=== PATIENT | female | born 1960 | race Caucasian/White ===

== ENCOUNTER → 2023-07-10 15:40 | Outpatient (REF) | payer BC, MEDICARE, OTHER, SELFPAY | LOC: HWRAD 15:40 | PROVIDERS: ATTENDING PHYSICIAN Internal Medicine Infectious Disease; FAMILY PHYSICIAN Student in an Organized Health Care Education/Training Program; REFERRING PHYSICIAN Internal Medicine Critical Care Medicine | DX: J47.9 Bronchiectasis, uncomplicated (principal) | CPT/HCPCS: 71250 ==

== ENCOUNTER 2023-09-14 06:10 | Outpatient (RCR) | payer BC, MEDICARE, OTHER, SELFPAY | END 2023-09-18 08:01 | disposition home or self-care (01) | LOC: RPT 06:10 | PROVIDERS: ATTENDING PHYSICIAN Surgery; FAMILY PHYSICIAN Student in an Organized Health Care Education/Training Program | DX: N30.10 Interstitial cystitis (chronic) without hematuria (principal); M62.89 Other specified disorders of muscle; N39.41 Urge incontinence; Z73.6 Limitation of activities due to disability | CPT/HCPCS: 97162; 97530 ==

== ENCOUNTER 2023-10-02 06:15 | Day surgery (SDC) | payer BC, MEDICARE, OTHER, SELFPAY ==
[2023-09-21 08:08] VITALS: BMI 18.4
[2023-09-21 09:37] LABS: Hematocrit 39.6 % (37.0-47.0); Hemoglobin 13.8 g/dL (12.0-16.0); Mean Corp Hgb Conc. 34.8 g/dL (33.0-37.0); Mean Corpuscular Hgb 32.5 pg (27.0-31.0); Mean Corpuscular Volume 93.2 fL (81.0-99.0); Mean Platelet Volume 9.9 fL (7.4-10.4); Platelet Count 195 10^3/uL (130-400); Red Blood Cell Count 4.25 10^6/uL (4.20-5.40); Red Cell Dist. Width 13.6 % (11.5-14.5); White Blood Cell Count 3.9 10^3/uL (4.8-10.8)
[2023-09-21 10:11] LABS: ALT (SGPT) 21 U/L (0-35); AST (SGOT) 39 U/L (14-36); Albumin 4.3 g/dl (3.5-5.0); Alkaline Phosphatase 55 U/L (38-126); Blood Urea Nitrogen 13 mg/dl (7-17); Calcium 9.6 mg/dl (8.4-10.2); Carbon Dioxide 27 mmol/L (22-30); Chloride 98 mmol/L (98-107); Estimated Creatinine Clearance 79 ml/min; Glucose 79 mg/dl (70-99); Potassium 4.6 mmol/L (3.5-5.1); Sodium 133 mmol/L (135-145); Total Bilirubin 0.6 mg/dl (0.2-1.3); Total Protein 7.5 g/dl (6.3-8.2); eGFR > 60.00
[2023-09-21 11:59] LABS: Glycohemoglobin (HgbA1c) 5.4 % (4.0-5.6)
[2023-10-02] VITALS (16 sets, daily range): BP systolic 99–139; BP diastolic 53–79; BMI 18.4
--- NOTE | 2023-10-02 07:08 | W.SUR.PREOP ---
Pre-Operative Surgical Note
-
I have examined this patient prior to the performance of the scheduled procedure.
The patient's condition is unchanged from the time of the current History and
Physical and the patient is able to undergo the scheduled procedure.
Confirmed with patient plan for RAL LIH repair with mesh with myself
Any of her questions were fully addressed
The appropriate surgical side and site were confirmed and marked.
[2023-10-02] MEDS: Pyridium 200 MG PO (07:09)
[2023-10-02] MEDS: ENTEREG 12 MG PO (07:09)
[2023-10-02] MEDS: TYLENOL 1000 MG PO (07:10)
[2023-10-02] MEDS: NORMOSOL-R 1000 IV ×3 (07:11→23:40)
[2023-10-02] MEDS: HEPARIN 5000 UNITS SC (07:11)
--- NOTE | 2023-10-02 07:33 | HP.FOC2 ---
Focused History & Physical
Chief Complaint
HPI:
Chief Complaint: left inguinal pain
HPI / Indication for Planned Procedure: US confirmed LIH, pt wishes to correct simultaneously with planned CR and TIN WORKER procedures.
Relevant Past Medical History: Other (hypothyroid, depression, autoimmune)
Relevant Social History: Negative
Relevant Family History: Negative
Relevant Past Surgical History: Positive for
Review of Systems
Review of Pertinent Systems: All Systems Negative
Medication
See Medication form for detailed medications: Yes
Medication List (including Herbals & OTC):
denosumab 60 mg/mL subcutaneous syringe (Prolia) 60 mg SQ Q6M Osteoporosis 06/17/19
pravastatin 20 mg tablet 20 mg PO QPM High cholesterol 06/17/19
sodium chloride 3 % for nebulization 4 ml inhalation DAILY 06/17/19
prucalopride 2 mg tablet (Motegrity) 2 mg PO DAILY PRN constipation 09/22/20
unbtenaz-drb-hreid acid 0.4 mg-lycopene 300 mcg-lutein 250 mcg tablet (Centrum Silver) 1 ea PO DAILY Supplement 02/16/21
calcium citrate 500 mg (2,376 mg) effervescent tablet 1,200 mg PO DAILY Supplement 03/02/22
lorazepam 0.5 mg tablet (Ativan) 0.5 mg PO PRN PRN ANXIETY 03/02/22
mecobalamin (vitamin B12) 1,000 mcg chewable tablet 1,000 mcg PO DAILY Supplement 03/02/22
Probiotic 1 cap PO DAILY 09/26/23
amikacin liposomal 590 mg/8.4 mL susp for inhalation, nebulizer acces. (Arikayce) 590 mg inhalation DAILY 09/26/23
azithromycin 250 mg tablet (Zithromax) 250 mg PO DAILY 09/26/23
calcium carbonate 600 mg-vitamin D3 20 mcg (800 unit) chewable tablet (Caltrate 600 plus D) 1 tab PO DAILY 09/26/23
cholecalciferol (vitamin D3) 25 mcg (1,000 unit) capsule (Vitamin D3) 25 mcg PO DAILY 09/26/23
ethambutol 400 mg tablet 800 mg PO DAILY 09/26/23
levothyroxine 75 mcg tablet 75 mcg PO DAILY 09/26/23
magnesium 250 mg tablet 250 mg PO DAILY 09/26/23
metronidazole 500 mg tablet 500 mg PO PRE OP 09/26/23
neomycin 500 mg tablet 1,000 mg PO PRE OP 09/26/23
potassium 99 mg tablet 99 mg PO DAILY 09/26/23
rifabutin 150 mg capsule 150 mg PO DAILY 09/26/23
sodium sul 1.479 gram-potas ch 0.188 gram-magnes sul 0.225 gram tablet (Sutab) 0 tab PO PRE OP 09/26/23
plecanatide 3 mg tablet (Trulance) 3 mg PO DAILY 10/02/23
Medications Reviewed: Yes
Allergies and Reactions
Patient has Allergies: Yes
Noted Allergies and Reactions:
Allergy/AdvReac Type Severity Reaction Status Date / Time
ampicillin Allergy yeast Verified 10/02/23 06:47
infection
NSAIDS (Non-Steroidal Allergy stomach Verified 10/02/23 06:47
Anti-Inflamma issues
pollen extracts Allergy seasonal Verified 10/02/23 06:47
allergy
Pertinent Physical Exam
All Other Systems: Negative
Head/Neck: Normal
Lungs: Normal
Heart: Normal
Abdomen: Normal
Extremities: Normal
Neurological: Normal
Diagnosis / Assessment
63 y/o with US identified LIH presenting for sheduled repair with planned TIN WORKER/CR surgery
Plan / Procedure
RAL LIH repair with mesh
Anesthesia/Sedation to be done by Anesthesia Provider: Yes
--- NOTE | 2023-10-02 09:17 | W.IMMPOSTOP ---
Surgical Immed Post Op Note
-
Primary Surgeon: Richard
Assisting Surgeon: Alyssa UPTON
Pre-op Diagnosis: Left inguinal hernia
Post-op Diagnosis: Left indirect inguinal hernia/left femoral hernia
Procedure Performed: Robotic assisted laparoscopic ENDER repair left inguinal/femoral hernia with mesh; 3D max large mid weight
Anesthesia Type: GETA
Specimen / Cultures: None
Estimated Blood Loss: 4 mL
Complications: None immediate
Operative Findings: No peritoneal defect/protrusion. Left inguinal preperitoneal flap with subsequent identification of left indirect inguinal hernia, fat-containing as well as left femoral hernia. 3D max large mid weight mesh repair secured to
Winston's ligament with interrupted 2-0 Vicryl suture. Peritoneal flap closed with 2-0 Monocryl Stratafix.
Patient's updated postoperatively via phone call
--- NOTE | 2023-10-02 12:14 | W.IMMPOSTOP ---
Documented by User: Edna [email or web address] 10/02/23 12:22
Surgical Immed Post Op Note
-
Primary Surgeon: Oscar iKm MD, Santo Ramos MD, Inder Shook MD
Assisting Surgeon: Harsha UPTON
Pre-op Diagnosis: left inguinal hernia
pelvic floor dysfunction, rectal prolapse
prolapse of vaginal vault after hysterectomy
Post-op Diagnosis: left indirect inguinal hernia/ left femoral hernia
pelvic floor dysfunction, rectal prolapse
prolapse of vaginal vault after hysterectomy
Procedure Performed: robotic assisted laparoscopic ENDER repair left inguinal/femoral hernia with mesh
robotic ventral rectopexy with mesh
Anesthesia Type: GET
Specimen / Cultures: None
Estimated Blood Loss: 15 cc
Complications: None
Operative Findings:

Documented by User: Enrique Kim MD 10/02/23 12:52
Surgical Immed Post Op Note
-
Primary Surgeon: Oscar Kim MD, Santo Ramos MD, Inder Shook MD
Assisting Surgeon: Harsha UPTON
Pre-op Diagnosis: left inguinal hernia
pelvic floor dysfunction, rectal intussusception
prolapse of vaginal vault after hysterectomy
right adnexal mass
Post-op Diagnosis: left indirect inguinal hernia/ left femoral hernia
pelvic floor dysfunction, rectal intussusception
prolapse of vaginal vault after hysterectomy
right adnexal mass
Procedure Performed: robotic assisted laparoscopic ENDER repair left inguinal/femoral hernia with mesh
robotic ventral rectopexy with mesh
robotic sacroculpopexy and excision of right adnexal mass
Anesthesia Type: GET
Specimen / Cultures: None
Estimated Blood Loss: 15 cc
Complications: None
Operative Findings: benign-appearing right adnexal mass
small left indirect and femoral hernia
pelvic floor prolapse (mesh repair)
posterior colporrhaphy and perineoplasty
Patient's updated.
[2023-10-02] MEDS: DEMEROL 12.5 MG IV (12:38)
[2023-10-02] MEDS: DILAUDID 0.5 MG IV ×3 (12:44→13:18)
[2023-10-02] MEDS: TORADOL 15 MG IV ×2 (16:55→22:01)
[2023-10-02] MEDS: TYLENOL 650 MG PO ×2 (16:56→20:57)
[2023-10-02] MEDS: ZOFRAN 4 MG IV (17:04)
[2023-10-02] MEDS: PRAVACHOL 20 MG PO (17:04)
[2023-10-02] MEDS: ERYTHROMYCIN 0.5% OPHTHALMIC OINTMENT 1 APPLIC OPHTH ×2 (17:20→22:12)
--- NOTE | 2023-10-02 17:23 | OR.RPT ---
Operative Report
Operative Report
Surgeon: Inder Shook MD
PREOPERATIVE DIAGNOSIS:
1. Recurrent pelvic organ prolapse
POSTOPERATIVE DIAGNOSIS:
1. Recurrent pelvic organ prolapse
PROCEDURE:
1. Robotic assisted laparoscopic sacrocolpopexy
2. Robotic assisted right adnexal cystectomy
3. Posterior colporrphaphy with perineoplasty
4. Cystoscopy
ASSISTANTS: ALEXSANDRA Matthew
EBL: 20 cc
COMPLICATIONS: None
SPECIMENS: Right adnexal cysts
INDICATIONS: Patient has symptomatic pelvic organ prolapse s/p total hysterectomy and uterosacral ligament suspension.� The risks of surgery were reviewed, including the risk of bleeding, infection, damage to surrounding organs including bowel,
bladder, ureter, urethra, nerves, blood vessels, mesh complications, post-operative urinary retention and urinary incontinence. The risk of anesthesia was also reviewed.� The patient expressed understanding and informed consent was obtained.
FINDINGS: Laparoscopic findings include cystic structure of the right adnexa. Cystoscopic findings include normal bladder mucosa, no cystotomy, suture, mesh, lacerations or lesions.� Normal efflux of urine from bilateral ureteral openings. Normal
urethra.
DESCRIPTION OF PROCEDURE:
On day of surgery, patient properly identified in preoperative waiting area and informed consent of planned procedure again reviewed.� She was then taken to the operating room.� Sequential compression devices were placed on bilateral lower
extremities and 5,000 units of subcutaneous heparin were given for DVT prophylaxis.� General anesthesia was induced without difficulty.�The patient was placed in dorsal lithotomy position with Hao stirrups and prepped and draped in the usual
sterile fashion.� Surgical time-out was performed to review patient and procedure.
At this time, Dr. Santo Ramos completed a left sided inguinal hernia repair. Please see his operative report.
�
On inspection of the pelvis, there was complex cystic structure on her right adnexa. The cyst was isolated and cauterized with bipolar and then dissected free from the sidewall with monopolar scissor. This was placed in an Endobag and removed from
the abdomen.
The robotic assisted laparoscopic abdominal sacrocolpopexy was performed as follows:� The bladder was dissected anteriorly off the vagina to allow for mesh placement.�The posterior peritoneum was entered sharply and the rectum dissected posteriorly
off the vagina.� The posterior peritoneum was continued to be opened through the cul-de-sac.� Next the sacrum was exposed after retracting bowel gently away.� The peritoneum overlying the sacral was tented up and entered sharply.� The presacral
space area was opened op and dissection carried down to expose and clear off the anterior longitudinal ligament at the level of the sacrum.� This peritoneum incision was carried inferiorly to join the peritoneal incision of the posterior
cul-de-sac.� Hemostasis was noted.��
At this time, Dr. Oscar Kim completed a rectopexy. Please see his operative report.
�The robotic assisted laparoscopic abdominal sacrocolpopexy was completed as follows: the polypropylene Y mesh was introduced through the accessory port and positioned over the cervix.� The anterior arm of the Y mesh was sutured to the anterior
cervix and vagina with approximately nine #2-0 Gortex sutures.� The posterior arm of the Y mesh was sutured to the posterior cervix and vagina with nine #2-0 Gortex sutures.� The tail of the Y mesh was attached to the anterior longitudinal ligament
at the level of the sacrum with 3 #2-0 Gortex sutures.� The vagina was noted to be elevated but not under tension.� Hemostasis was noted.� The excess mesh was trimmed and removed.� The peritoneum was reapproximated to cover the mesh.� The pelvis was
reexamined and hemostasis was noted throughout.�
Cystoscopy was completed with above findings.
The robot was undocked.�CO2 was released and ports removed under direct visualization.� Skin was closed with 4-0 Biosyn for the subcuticular layer.� All abdominal incisions were then closed with skin glue.�
The posterior repair and perineorrhaphy was performed as follows: The posterior vaginal mucosa and perineum skin were infiltrated with 1% lidocaine with 1:100,000 epinephrine. A triangular area of perineum skin was removed using a scalpel.� The
posterior vaginal mucosa was then opened up in the midline, going from the introitus toward the apex using Metzenbaum scissors.� The posterior vaginal mucosa was then dissected off the underlying rectovaginal fascia bilaterally out to the level of
the lateral sulci.� The apical edge of the rectovaginal fascia was identified and used plicate in the midline with interrupted stitches of #2-0 PDS.� Interrupted suture of #2-0 PDS were also used to plicate the transverse peritoneal and
bulbospongiosus muscles in the midline to reconstruct the perineal body.� Excess vaginal mucosa was trimmed.� The vaginal mucosa and perineum skin were reapproximated with 2-0 Vicryl in a running continuous fashion.� Rectal exam revealed no
stitches.� Vaginal packing was not placed.
Anesthesia was reversed without difficulty.� The patient tolerated the procedure well, was awakened and sent to the PACU in stable condition. All counts were correct x 2. I, Dr. Shook was scrubbed and present throughout the procedure
[2023-10-02] MEDS: ATIVAN 0.5 MG PO (21:00)
[2023-10-03] VITALS (7 sets, daily range): BP systolic 103–124; BP diastolic 54–65; BMI 19.1
[2023-10-03] MEDS: TYLENOL 650 MG PO ×6 (01:00→20:33)
[2023-10-03] MEDS: TORADOL 15 MG IV ×4 (05:00→22:37)
[2023-10-03] MEDS: SYNTHROID 75 MCG PO (05:11)
--- NOTE | 2023-10-03 06:57 | W.PN.GYN ---
Today's Communication / Plan
-
1. d/c ruelas after BMP results
Physician Note
-
Assessment and plan:
63 yo woman POD 1 s/p robotic sacrocolpopexy, right adnexal cystectomy, posterior colporrhaphy, cystoscopy (Boone), rectopexy (Julio), inguinal repair (Richard): patient meeting postoperative milestones and doing well POD1
Postoperative Care:
-Diet per Colorectal surgery
-DVT ppx: scds and ambulation
-: no vaginal packing, minimal spotting
-Ruelas catheter: removed after BMP results
-BMP and CBC pending this morning
Subjective:
no acute pain, ambulating to chair, deneis flatus, minimal vaginal spotting, denies fevers/chills, nausea, chest pain, sob, leg pain
Objective:
Intake and Output
10/01/23 10/02/23 10/03/23 10/04/23
06:59 06:59 06:59 06:59
Intake Total 1870 / 1870
Output Total 1240 / 1240
Balance 630 / 630
Intake:
Oral fluids 495 / 495
IV fluids (Total) 1375 / 1375
Normosol-R 1,000 ml @ 100 mls/ 75 / 75
hr IV .Q10H [facility] Rx#:[id number]
norm 100 / 100
Output:
Urine, Ruelas 1240 / 1240
Vital Signs
Temp Pulse Resp BP Pulse Ox
98.2 F 87 16 110/56 98
10/03/23 03:47 10/03/23 03:47 10/03/23 03:47 10/03/23 03:47 10/03/23 03:47
Exam:
ABdomen: soft, nontender
Incisions: clean dry intact
: ruelas in place, no active bleeding
[2023-10-03 07:50] LABS: % Basophils 0.3 % (0-2); % Eosinophils 0.3 % (0-6); % Immature Granulocytes 0.3 % (0-0.5); % Lymphocytes 34.9 % (20.5-51.1); % Monocytes 10.8 % (1.7-9.3); % Neutrophils 53.4 % (42.2-75.2); Absolute Lymphocytes 2.5 10^3/uL (1.2-3.4); Absolute Monocytes 0.8 10^3/uL (0.1-0.6); Absolute Neutrophils 3.8 10^3/uL (1.4-6.5); Hematocrit 33.6 % (37.0-47.0); Mean Corp Hgb Conc. 35.7 g/dL (33.0-37.0); Mean Corpuscular Hgb 32.5 pg (27.0-31.0); Mean Corpuscular Volume 91.1 fL (81.0-99.0); Mean Platelet Volume 9.3 fL (7.4-10.4); Nucleated Red Blood Cells % 0 %; Platelet Count 225 10^3/uL (130-400); Red Blood Cell Count 3.69 10^6/uL (4.20-5.40); Red Cell Dist. Width 13.7 % (11.5-14.5); White Blood Cell Count 7.1 10^3/uL (4.8-10.8)
[2023-10-03 08:16] LABS: Blood Urea Nitrogen 8 mg/dl (7-17); Calcium 7.4 mg/dl (8.4-10.2); Carbon Dioxide 23 mmol/L (22-30); Chloride 105 mmol/L (98-107); Estimated Creatinine Clearance 81 ml/min; Glucose 86 mg/dl (70-99); Potassium 4.1 mmol/L (3.5-5.1); Sodium 134 mmol/L (135-145); eGFR > 60.00
--- NOTE | 2023-10-03 08:36 | W.PN.CRS1 ---
Today's Communication / Plan
-
fulls
d/c ruelas
start lovenox
Assessment/Plan
-
VSS, WBC 7.1
POD#1 robotic assisted laparoscopic ENDER repair left inguinal/femoral hernia with mesh, robotic ventral rectopexy with mesh
1. Tolerating clears. Advance to a full liquid diet.
2. Vitals normal. Hgb stable, 12.0 from 13.8.
3. D/c ruelas. Good urine output and creatinine is 0.5.
4. Start Lovenox today for DVT prophylaxis. TEDS/SCDS in place.
5. Pain control: Tylenol/Toradol standing, Dilaudid PRN.
6. OR pathology pending.
7. OOB as tolerated.
Subjective Data
Procedure
10/02/2023- robotic assisted laparoscopic ENDER repair left inguinal/femoral hernia with mesh, robotic ventral rectopexy with mesh
Subjective Data
Date of Service: October 03, 2023
Patient states she is 'sore'. She had some nausea overnight which resolved. She has not had any flatus or bowel movements.
Objective Data
-
Vital Signs
Temp Pulse Resp BP Pulse Ox
98.6 F 62 16 105/63 97
10/03/23 07:20 10/03/23 07:20 10/03/23 07:20 10/03/23 07:20 10/03/23 07:20
Intake & Output
10/02/23 10/03/23 10/04/23
06:59 06:59 06:59
Intake Total 1870 / 1870
Output Total 1240 / 1240
Balance 630 / 630
Intake:
Oral fluids 495 / 495
IV fluids (Total) 1375 / 1375
Normosol-R 1,000 ml @ 100 mls/ 75 / 75
hr IV .Q10H [facility] Rx#:[id number]
norm 100 / 100
Output:
Urine, Ruelas 1240 / 1240
Lab Results
10/03/23 07:29
10/03/23 07:29
Physical Exam
-
General: No Acute Distress and AOx3
Abdomen: Soft, Non Distended and Non Tender
Skin: Warm and Dry
Incision: Clear, Dry, Intact
[2023-10-03] MEDS: ERYTHROMYCIN 0.5% OPHTHALMIC OINTMENT OPHTH ×4 (09:06→22:44)
[2023-10-03] MEDS: ENTEREG 12 MG PO ×2 (09:07→20:33)
[2023-10-03] MEDS: NORMOSOL-R IV ×2 (09:08→18:11)
--- NOTE | 2023-10-03 10:19 | CM ---
Patient seen bedside.
IA completed.
patient lives with spouse in a 2 story home with 1st floor bedroom.
Patient drives.
Kelly d/c this am, await void.
Declined VN
PCP: Dr Hoyos
Pharmacy; [facility]
Plan: home no needs anticipated, aware of CM availability should needs arise.
[2023-10-03] MEDS: LOVENOX 40 MG SC (16:57)
[2023-10-03] MEDS: PRAVACHOL 20 MG PO (17:00)
[2023-10-03] MEDS: ZOFRAN 4 MG IV (17:11)
[2023-10-03] MEDS: ATIVAN 0.5 MG PO (20:39)
[2023-10-04] MEDS: TYLENOL PO (00:15)
[2023-10-04] MEDS: TYLENOL 650 MG PO ×2 (04:23→08:18)
[2023-10-04] MEDS: TORADOL 15 MG IV ×2 (04:23→10:42)
[2023-10-04] MEDS: SYNTHROID 75 MCG PO (04:36)
[2023-10-04] MEDS: ERYTHROMYCIN 0.5% OPHTHALMIC OINTMENT 1 APPLIC OPHTH (04:37)
[2023-10-04 04:40] VITALS: BMI 18.8
--- NOTE | 2023-10-04 06:39 | W.PN.GYN ---
Today's Communication / Plan
-
plan per colorectal
Physician Note
-
Assessment and plan:
63 yo woman POD 2 s/p robotic sacrocolpopexy, right adnexal cystectomy, posterior colporrhaphy, cystoscopy (Boone), rectopexy (Julio), inguinal repair (Richard): patient meeting postoperative milestones and doing well POD2
Postoperative Care:
-Diet per Colorectal surgery
-DVT ppx: scds and ambulation and Lovenox
-: no vaginal packing, minimal spotting
-Voiding without catheter
-BMP and CBC pending this morning
Subjective:
no acute pain, ambulating to chair, passed flatus, had diarrhea yesterday, minimal vaginal spotting, denies fevers/chills, nausea, chest pain, sob, leg pain
Objective:
Intake and Output
10/01/23 10/02/23 10/03/23 10/04/23
06:59 06:59 06:59 06:59
Intake Total 1870 / 1870 1769 / 1770
Output Total 1240 / 1240
Balance 630 / 630 1769 / 1769
Intake:
Oral fluids 495 / 495 1320 / 1320
IV fluids (Total) 1375 / 1375 450 / 450
Normosol-R 1,000 ml @ 100 mls/ 75 / 75
hr IV .Q10H [facility] Rx#:[id number]
norm 100 / 100
Output:
Urine, Kelly 1240 / 1240
Other:
Number of approximated MODERATE 2
amounts of urine
Vital Signs
Temp Pulse Resp BP Pulse Ox
97.9 F 64 16 116/62 97
10/03/23 23:00 10/03/23 23:00 10/03/23 23:00 10/03/23 23:00 10/03/23 23:00
Exam:
Abdomen: soft, nontender, mild distension, +bowel sounds
Incisions: clean, dry, intact
: minimall spotting
[2023-10-04 07:20] VITALS: BP 116/70
[2023-10-04 07:43] LABS: % Basophils 0.3 % (0-2); % Eosinophils 2.1 % (0-6); % Immature Granulocytes 0.2 % (0-0.5); % Lymphocytes 34.9 % (20.5-51.1); % Monocytes 7.4 % (1.7-9.3); % Neutrophils 55.1 % (42.2-75.2); Absolute Eosinophils 0.1 10^3/uL (0-0.7); Absolute Lymphocytes 2.2 10^3/uL (1.2-3.4); Absolute Monocytes 0.5 10^3/uL (0.1-0.6); Absolute Neutrophils 3.5 10^3/uL (1.4-6.5); Hematocrit 32.8 % (37.0-47.0); Hemoglobin 11.6 g/dL (12.0-16.0); Mean Corp Hgb Conc. 35.4 g/dL (33.0-37.0); Mean Corpuscular Hgb 32.2 pg (27.0-31.0); Mean Corpuscular Volume 91.1 fL (81.0-99.0); Mean Platelet Volume 9.3 fL (7.4-10.4); Nucleated Red Blood Cells % 0 %; Platelet Count 236 10^3/uL (130-400); Red Cell Dist. Width 13.5 % (11.5-14.5); White Blood Cell Count 6.3 10^3/uL (4.8-10.8)
[2023-10-04 08:17] LABS: Blood Urea Nitrogen 6 mg/dl (7-17); Carbon Dioxide 23 mmol/L (22-30); Chloride 106 mmol/L (98-107); Estimated Creatinine Clearance 80 ml/min; Glucose 93 mg/dl (70-99); Potassium 4.2 mmol/L (3.5-5.1); Sodium 134 mmol/L (135-145); eGFR > 60.00
[2023-10-04] MEDS: ENTEREG PO (08:20)
--- NOTE | 2023-10-04 10:05 | W.PN.CRS1 ---
Today's Communication / Plan
-
low residue diet
okay for d/c later if tolerates LR diet
Assessment/Plan
-
VSS, WBC 6.3
POD#2 robotic assisted laparoscopic ENDER repair left inguinal/femoral hernia with mesh, robotic ventral rectopexy with mesh
1. Advance to a low residue diet.
2. Urinating well post ruelas removal. Good urine output and creatinine is 0.5.
4. Lovenox today for DVT prophylaxis. TEDS/SCDS in place.
5. Pain control: Tylenol/Toradol standing, Dilaudid PRN.
6. OR pathology pending.
7. OOB as tolerated.
8. Per outpatient ID doctor, okay to stop antibiotics for now and he will resume them later as an outpatient.
9. Okay for d/c later today if tolerating a low residue diet. All discharge instructions discussed with patient including medications, activity levels, and follow up. All questions answered.
Subjective Data
Procedure
10/02/2023- robotic assisted laparoscopic ENDER repair left inguinal/femoral hernia with mesh, robotic ventral rectopexy with mesh
Subjective Data
Date of Service: October 04, 2023
Patient states she feels well. Her pain is controlled. She has some loose stools. She is urinating without difficulty. She has occasional lower abdominal cramps.
Objective Data
-
Vital Signs
Temp Pulse Resp BP Pulse Ox
98.2 F 67 18 116/70 97
10/04/23 07:20 10/04/23 07:20 10/04/23 07:20 10/04/23 07:20 10/04/23 07:20
Intake & Output
10/03/23 10/04/23 10/05/23
06:59 06:59 06:59
Intake Total 1870 / 1870 2009
Output Total 1240 / 1240
Balance 630 / 630 2009
Intake:
Oral fluids 495 / 495 1560 / 1560
IV fluids (Total) 1375 / 1375 450 / 450
Normosol-R 1,000 ml @ 100 mls/ 75 / 75
hr IV .Q10H [facility] Rx#:[id number]
norm 100 / 100
Output:
Urine, Ruelas 1240 / 1240
Other:
Number of approximated MODERATE 2
amounts of urine
Lab Results
10/04/23 07:06
10/04/23 07:06
Physical Exam
-
General: No Acute Distress and AOx3
Abdomen: Soft, Non Distended and Non Tender
Skin: Warm and Dry
Incision: Clear, Dry, Intact
[2023-10-04 11:10] VITALS: BP 129/72
== END 2023-10-04 11:19 | disposition home or self-care (01) ==
LOC: SDS 06:15
PROVIDERS: Physician Assistant; ATTENDING PHYSICIAN Surgery; FAMILY PHYSICIAN Student in an Organized Health Care Education/Training Program; OTHER PHYSICIAN Internal Medicine Infectious Disease; OTHER PHYSICIAN Obstetrics & Gynecology; OTHER PHYSICIAN Surgery
DX: N99.3 Prolapse of vaginal vault after hysterectomy (principal); K40.90 Unilateral inguinal hernia, without obstruction or gangrene, not specified as recurrent; K41.90 Unilateral femoral hernia, without obstruction or gangrene, not specified as recurrent; K56.1 Intussusception; D27.0 Benign neoplasm of right ovary
CPT/HCPCS: 57425; 58662; 57250; 49650; 88305; 36415; 80048; 80053; 83036; 85025; 85027; 86850; 86900; 86901; 93005; C1763; C1781; J1335

== ENCOUNTER → 2023-10-19 08:05 | Outpatient (REF) | payer BC, MEDICARE, OTHER, SELFPAY | LOC: WDC 08:05 | PROVIDERS: ATTENDING PHYSICIAN Obstetrics & Gynecology; FAMILY PHYSICIAN Student in an Organized Health Care Education/Training Program | DX: Z12.31 Encounter for screening mammogram for malignant neoplasm of breast (principal) | CPT/HCPCS: 77063; 77067 ==

== ENCOUNTER → 2023-10-22 13:48 | Outpatient (REF) | payer BC, MEDICARE, OTHER, SELFPAY | LOC: HWRAD 13:48 | PROVIDERS: ATTENDING PHYSICIAN Internal Medicine Rheumatology; FAMILY PHYSICIAN Student in an Organized Health Care Education/Training Program | DX: M81.0 Age-related osteoporosis without current pathological fracture (principal) | CPT/HCPCS: 77080 ==

== ENCOUNTER 2023-11-20 08:22 | Outpatient (RCR) | payer BC, MEDICARE, OTHER, SELFPAY | END 2023-11-20 23:59 | disposition home or self-care (01) | LOC: RPT 08:22 | PROVIDERS: ATTENDING PHYSICIAN Orthopaedic Surgery; FAMILY PHYSICIAN Student in an Organized Health Care Education/Training Program | DX: M54.2 Cervicalgia (principal); M54.12 Radiculopathy, cervical region | CPT/HCPCS: 97110; 97140; 97162; 97535 ==

== ENCOUNTER → 2023-11-30 13:56 | Outpatient (REF) | payer BC, OTHER, SELFPAY | LOC: RAD 13:56 | PROVIDERS: ATTENDING PHYSICIAN Student in an Organized Health Care Education/Training Program; REFERRING PHYSICIAN Physician Assistant | DX: M79.601 Pain in right arm (principal); G62.9 Polyneuropathy, unspecified | CPT/HCPCS: 93971 ==

== ENCOUNTER 2023-12-07 06:35 | Outpatient (RCR) | payer BC, MEDICARE, OTHER, SELFPAY | END 2023-12-07 23:59 | disposition home or self-care (01) | LOC: RPT 06:35 | PROVIDERS: ATTENDING PHYSICIAN Orthopaedic Surgery; FAMILY PHYSICIAN Student in an Organized Health Care Education/Training Program | DX: M54.12 Radiculopathy, cervical region (principal) | CPT/HCPCS: 97010; 97110; 97140 ==

== ENCOUNTER → 2024-01-15 12:10 | Outpatient (REF) | payer BC, MEDICARE, OTHER, SELFPAY | LOC: MRI 12:10 | PROVIDERS: ATTENDING PHYSICIAN Orthopaedic Surgery; FAMILY PHYSICIAN Student in an Organized Health Care Education/Training Program | DX: M54.2 Cervicalgia (principal); M25.511 Pain in right shoulder | CPT/HCPCS: 72141; 73221 ==

== ENCOUNTER → 2024-01-28 07:27 | Outpatient (REF) | payer BC, MEDICARE, OTHER, SELFPAY | LOC: HWRAD 07:27 | PROVIDERS: ATTENDING PHYSICIAN Internal Medicine Infectious Disease; FAMILY PHYSICIAN Student in an Organized Health Care Education/Training Program; REFERRING PHYSICIAN Internal Medicine Critical Care Medicine | DX: A31.0 Pulmonary mycobacterial infection (principal); J47.9 Bronchiectasis, uncomplicated | CPT/HCPCS: 71250 ==

== ENCOUNTER → 2024-02-18 06:41 | Day surgery (SDC) | payer BC, MEDICARE, OTHER, SELFPAY | LOC: GI 06:41 | PROVIDERS: ATTENDING PHYSICIAN Internal Medicine; FAMILY PHYSICIAN Student in an Organized Health Care Education/Training Program | DX: D51.0 Vitamin B12 deficiency anemia due to intrinsic factor deficiency (principal); K29.40 Chronic atrophic gastritis without bleeding; K31.A0 Gastric intestinal metaplasia, unspecified; K29.50 Unspecified chronic gastritis without bleeding; K31.A11 Gastric intestinal metaplasia without dysplasia, involving the antrum; K31.A15 Gastric intestinal metaplasia without dysplasia, involving multiple sites | CPT/HCPCS: 43239; 88305; 88342 ==

== ENCOUNTER → 2024-02-21 12:13 | Outpatient (REF) | payer BC, SELFPAY | LOC: SDS 12:13 | PROVIDERS: ATTENDING PHYSICIAN Physician Assistant; FAMILY PHYSICIAN Student in an Organized Health Care Education/Training Program | DX: M89.8X2 Other specified disorders of bone, upper arm (principal) | CPT/HCPCS: 73220; A9575 ==

== ENCOUNTER 2024-04-22 09:01 | Outpatient (RCR) | payer BC, MEDICARE, OTHER, SELFPAY | END 2024-04-22 23:59 | disposition home or self-care (01) | LOC: RPT 09:01 | PROVIDERS: ATTENDING PHYSICIAN Urology; FAMILY PHYSICIAN Student in an Organized Health Care Education/Training Program | DX: M62.89 Other specified disorders of muscle (principal); K59.00 Constipation, unspecified; R10.2 Pelvic and perineal pain; R35.0 Frequency of micturition; N30.10 Interstitial cystitis (chronic) without hematuria; M62.81 Muscle weakness (generalized); Z73.6 Limitation of activities due to disability | CPT/HCPCS: 97140; 97163; 97530 ==

== ENCOUNTER → 2024-05-08 14:01 | Outpatient (REF) | payer BC, MEDICARE, OTHER, SELFPAY | LOC: RCS 14:01 | PROVIDERS: ATTENDING PHYSICIAN Specialist; FAMILY PHYSICIAN Student in an Organized Health Care Education/Training Program | DX: Z01.818 Encounter for other preprocedural examination (principal) | CPT/HCPCS: 93005 ==

== ENCOUNTER 2024-05-15 14:00 | Outpatient (RCR) | payer BC, MEDICARE, OTHER, SELFPAY | END 2024-05-15 15:05 | disposition home or self-care (01) | LOC: RPT 14:00 | PROVIDERS: ATTENDING PHYSICIAN Urology; FAMILY PHYSICIAN Student in an Organized Health Care Education/Training Program | DX: M62.89 Other specified disorders of muscle (principal); K59.00 Constipation, unspecified; R10.2 Pelvic and perineal pain; R35.0 Frequency of micturition; N30.10 Interstitial cystitis (chronic) without hematuria; M62.81 Muscle weakness (generalized); Z73.6 Limitation of activities due to disability | CPT/HCPCS: 97140; 97530 ==

== ENCOUNTER → 2024-06-24 07:28 | Outpatient (REF) | payer BC, OTHER, SELFPAY | LOC: HWRAD 07:28 | PROVIDERS: ATTENDING PHYSICIAN Student in an Organized Health Care Education/Training Program | DX: M79.603 Pain in arm, unspecified (principal) | CPT/HCPCS: 76882 ==

== ENCOUNTER → 2024-10-20 15:30 | Outpatient (REF) | payer BC, MEDICARE, OTHER, SELFPAY | LOC: WDC 15:30 | PROVIDERS: ATTENDING PHYSICIAN Obstetrics & Gynecology; FAMILY PHYSICIAN Student in an Organized Health Care Education/Training Program | DX: Z12.31 Encounter for screening mammogram for malignant neoplasm of breast (principal) | CPT/HCPCS: 77063; 77067 ==

== ENCOUNTER → 2024-10-29 12:58 | Outpatient (REF) | payer BC, MEDICARE, OTHER, SELFPAY | LOC: HWRAD 12:58 | PROVIDERS: ATTENDING PHYSICIAN Physical Medicine & Rehabilitation; FAMILY PHYSICIAN Student in an Organized Health Care Education/Training Program | DX: E06.3 Autoimmune thyroiditis (principal) | CPT/HCPCS: 76536 ==

== ENCOUNTER → 2024-11-26 12:16 | Outpatient (REF) | payer BC, MEDICARE, OTHER, SELFPAY ==
[2024-11-26 12:50] VITALS: BP 145/85; BP_SYST 80
== END ==
LOC: RADI 12:16
PROVIDERS: ATTENDING PHYSICIAN Internal Medicine Endocrinology, Diabetes & Metabolism; FAMILY PHYSICIAN Student in an Organized Health Care Education/Training Program
DX: E04.1 Nontoxic single thyroid nodule (principal)
CPT/HCPCS: 10005; 88173

== ENCOUNTER → 2024-12-29 14:27 | Outpatient (REF) | payer BC, OTHER, SELFPAY | LOC: RAD 14:27 | PROVIDERS: ATTENDING PHYSICIAN Student in an Organized Health Care Education/Training Program | DX: R44.9 Unspecified symptoms and signs involving general sensations and perceptions (principal) | CPT/HCPCS: 76536 ==

== ENCOUNTER → 2025-03-18 06:53 | Outpatient (REF) | payer MEDICARE, BC, SELFPAY | LOC: RAD 06:53 | PROVIDERS: ATTENDING PHYSICIAN Internal Medicine Hematology & Oncology; FAMILY PHYSICIAN Student in an Organized Health Care Education/Training Program | DX: I82.712 Chronic embolism and thrombosis of superficial veins of left upper extremity (principal) | CPT/HCPCS: 93971 ==